=== PATIENT | female | born 1970 | race Caucasian/White ===

== ENCOUNTER 2017-02-18 08:00 | Emergency (ER) | payer MEDICARE ==
--- NOTE | 2017-02-18 09:03 | ED CLINICAL REPORT ---
Clinical Report - Physicians/Mid Levels [facility] [address] [place] [address] 02/18/2017 8:03 Patient: JESSICA CARRASCO Time Seen: 0811. Arrived- By private vehicle. Historian- patient. HISTORY OF PRESENT ILLNESS Chief Complaint: SWELLING OF JAW / FACE. This started past few days and is still present. It was abrupt in onset and has been waxing/waning but is not gone now. Pain described as mild. No sore throat, nasal congestion or toothache. (states there is a "gland" that swells up while eating. then it gets better after an hour or so. no redness noted over the area.). Similar symptoms previously: None. Recent medical care: Not recently seen/assessed. REVIEW OF SYSTEMS No fever, difficulty breathing, chest pain, nausea or skin rash. Denies current . All systems otherwise negative, except as recorded above. PAST HISTORY See nurses notes. Medications: Methadone HCl Oral. Allergies: No Known Drug Allergy. SOCIAL HISTORY Never smoker. 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 No alcohol use. No recent travel. Is a local resident. ADDITIONAL NOTES The nursing notes have been reviewed. PHYSICAL EXAM Vital Signs: 02/18/2017 08:11 BP: 161/94. HR: 79. RR: 15. O2 saturation: 97%. Temp: 98.3 F. Oxygen saturation normal. Appearance: Alert. No acute distress. (non-toxic. pleasant. cooperative.). Head: Normal external inspection. Eyes: Pupils equal, round and reactive to light. Conjunctivae and eyelids normal. ENT: Ears normal. Nose normal. Pharynx normal. Lips normal. Gums normal. No trismus present. Uvula midline. (left submandibular swelling that is roughly 3 x 4 cm. Regular, non-tender mass. no overlying skin changes. no purulent discharge from salivary ducts.). Neck: Normal inspection. Trachea midline. No adenopathy. Thyroid normal. Neck supple. No meningeal signs. (no stridor). CVS: Normal heart rate and rhythm. Heart sounds normal. Pulses normal. Respiratory: No respiratory distress. Breath sounds normal. Chest nontender. Abdomen: Soft and nontender. No organomegaly. Skin: Normal skin color. No rash. Normal skin turgor. Neuro: Oriented X 3. No motor deficit. LABS, X-RAYS, AND EKG Note - Special Studies: Ultrasound neck: + sialoadenitis left submandibular gland; no abscess. Pulse Oximetry: 02/18/2017 08:11 O2 saturation: 97%. (FIO2 - room air). Interpretation: normal. PROGRESS AND PROCEDURES Course of Care: The patient is a pleasant 46-year-old female presenting for left-sided facial swelling. Patient with likely salioadenitis from saliolithiasis. Patient otherwise is in no acute distress and is nontoxic. No concern for airway compromise. No signs of Panchito's angina. Patient be evaluated with an ultrasound for differentiation of the salivary gland from possible reactive lymphadenitis. Ultrasound is pending. Patient will be transferred over to the oncoming doctor at the change of shift. 09:00. Care transferred from Dr Aguirre to myself secondary to change of shift patient updated on ETA of US. States she has been waiting 30 minutes. Expressed displeased behavior when learning she will need to wait 45 more minutes for US. Offered amenities to keep her comfortable while here in the ED. 09:55 02/18/17. US completed and confirms sialoadenitis. Patient/family counseled. Old ED records reviewed. Patient has had multiple ED visits. Disposition: Discharged. Condition: stable and improved. CLINICAL IMPRESSION Acute sialoadenitis Acute left cervical lymphadenitis (submandibular). INSTRUCTIONS Drink plenty of fluids. Warnings: Further evaluation is necessary. It is very important to follow up with a physician. GENERAL WARNINGS: Return or contact your physician immediately if your condition worsens or changes unexpectedly, if not improving as expected, or if other problems arise. Your Current Medications: CONTINUE TAKING THE FOLLOWING MEDICATIONS: Methadone HCl Oral. Prescription Medications: Augmentin 875 mg: take 1 tablet orally every 12 hours for 7 days. Dispense fourteen (14). No refills. Substitution is permissible. OTC Medications: Acetaminophen (available over the counter): take according to label instructions. Motrin (available over the counter): take according to label instructions. Follow-up: Follow up with your doctor tomorrow. Follow up with an ear, nose and throat physician (an booking clerk)- as recommended by your primary care physician. Follow-up with: Compa Sauer MD, ENT, , [address], , [place], [id number] Follow up in about two days. (Electronically signed by Hu You DO 02/18/2017 12:50)
--- NOTE | 2017-02-18 09:03 | ED CLINICAL REPORT ---
Clinical Report - Physicians/Mid Levels [facility] [address] [place] [address] 02/18/2017 8:03 Patient: JESSICA CARRASCO Time Seen: 0811. Arrived- By private vehicle. Historian- patient. HISTORY OF PRESENT ILLNESS Chief Complaint: SWELLING OF JAW / FACE. This started past few days and is still present. It was abrupt in onset and has been waxing/waning but is not gone now. Pain described as mild. No sore throat, nasal congestion or toothache. (states there is a "gland" that swells up while eating. then it gets better after an hour or so. no redness noted over the area.). Similar symptoms previously: None. Recent medical care: Not recently seen/assessed. REVIEW OF SYSTEMS No fever, difficulty breathing, chest pain, nausea or skin rash. Denies current . All systems otherwise negative, except as recorded above. PAST HISTORY See nurses notes. Medications: Methadone HCl Oral. Allergies: No Known Drug Allergy. SOCIAL HISTORY Never smoker. 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 No alcohol use. No recent travel. Is a local resident. ADDITIONAL NOTES The nursing notes have been reviewed. PHYSICAL EXAM Vital Signs: 02/18/2017 08:11 BP: 161/94. HR: 79. RR: 15. O2 saturation: 97%. Temp: 98.3 F. Oxygen saturation normal. Appearance: Alert. No acute distress. (non-toxic. pleasant. cooperative.). Head: Normal external inspection. Eyes: Pupils equal, round and reactive to light. Conjunctivae and eyelids normal. ENT: Ears normal. Nose normal. Pharynx normal. Lips normal. Gums normal. No trismus present. Uvula midline. (left submandibular swelling that is roughly 3 x 4 cm. Regular, non-tender mass. no overlying skin changes. no purulent discharge from salivary ducts.). Neck: Normal inspection. Trachea midline. No adenopathy. Thyroid normal. Neck supple. No meningeal signs. (no stridor). CVS: Normal heart rate and rhythm. Heart sounds normal. Pulses normal. Respiratory: No respiratory distress. Breath sounds normal. Chest nontender. Abdomen: Soft and nontender. No organomegaly. Skin: Normal skin color. No rash. Normal skin turgor. Neuro: Oriented X 3. No motor deficit. LABS, X-RAYS, AND EKG Note - Special Studies: Ultrasound neck: + sialoadenitis left submandibular gland; no abscess. Pulse Oximetry: 02/18/2017 08:11 O2 saturation: 97%. (FIO2 - room air). Interpretation: normal. PROGRESS AND PROCEDURES Course of Care: The patient is a pleasant 46-year-old female presenting for left-sided facial swelling. Patient with likely salioadenitis from saliolithiasis. Patient otherwise is in no acute distress and is nontoxic. No concern for airway compromise. No signs of Panchito's angina. Patient be evaluated with an ultrasound for differentiation of the salivary gland from possible reactive lymphadenitis. Ultrasound is pending. Patient will be transferred over to the oncoming doctor at the change of shift. 09:00. Care transferred from Dr Aguirre to myself secondary to change of shift patient updated on ETA of US. States she has been waiting 30 minutes. Expressed displeased behavior when learning she will need to wait 45 more minutes for US. Offered amenities to keep her comfortable while here in the ED. 09:55 02/18/17. US completed and confirms sialoadenitis. Patient/family counseled. Old ED records reviewed. Patient has had multiple ED visits. Disposition: Discharged. Condition: stable and improved. CLINICAL IMPRESSION Acute sialoadenitis Acute left cervical lymphadenitis (submandibular). INSTRUCTIONS Drink plenty of fluids. Warnings: Further evaluation is necessary. It is very important to follow up with a physician. GENERAL WARNINGS: Return or contact your physician immediately if your condition worsens or changes unexpectedly, if not improving as expected, or if other problems arise. Your Current Medications: CONTINUE TAKING THE FOLLOWING MEDICATIONS: Methadone HCl Oral. Prescription Medications: Augmentin 875 mg: take 1 tablet orally every 12 hours for 7 days. Dispense fourteen (14). No refills. Substitution is permissible. OTC Medications: Acetaminophen (available over the counter): take according to label instructions. Motrin (available over the counter): take according to label instructions. Follow-up: Follow up with your doctor tomorrow. Follow up with an ear, nose and throat physician (an contemporary or modern dancer)- as recommended by your primary care physician. Follow-up with: Compa Sauer MD, ENT, , [address], , [place], [id number] Follow up in about two days. (Electronically signed by Hu You DO 02/18/2017 12:50)
--- NOTE | 2017-02-18 09:04 | ED NURSING NOTES ---
Clinical Report - Nurses [facility] [address] [place] [address] 02/18/2017 8:03 Patient: JESSICA CARRASCO TRIAGE Triage time 08:10. Acuity: LEVEL 4. Chief Complaint: (swollen glands). 08:16 02/18/17. Alert. No acute distress. SEPSIS SCREEN: Sepsis Screen. Negative (no infection suspected/documented). TETO COMA SCORE: Gibbs Coma Scale: 15- eyes open spontaneously (4); best verbal response- oriented x 4 (5); best motor response- obeys commands (6). --08:16 Abbey Lee R.N. 08:11 02/18/17. BP: 161/94. HR: 79. RR: 15. O2 saturation: 97%. Temp: 98.3 F. Pain level now: 0/10. --08:16 Abbey Lee R.N. <<STRICKEN ENTRY-- 08:11 02/18/17. BP: 161/94. HR: 79. RR: 15. O2 saturation: 97%. Temp: 98.3 F. --08:16 Abbey Lee R.N. --END STRIKE>> Correction. --11:01 Abbey Lee R.N. Weight: 65.7 kg stated. Height/Length: 71 inches Per Patient. BMI: 20.2. --08:15 Abbey Lee R.N. Medications Methadone HCl Oral. --08:15 Abbey Lee R.N. Allergies No Known Drug Allergy. --08:12 Abbey Lee R.N. History ( Patient reports her glands swell "to the size of a baseball" when she eats. She states "I get that sour taste when I eat."). Treatment LEARNING SUPPORT SERVICES DIRECTOR: None. PAST MEDICAL HX: ( Hx of Hepatitis C). SOCIAL HX: Heavy tobacco smoker- less than 1 pack per day. History of drug use. (history of opioid use). No alcohol use. ABUSE ASSESSMENT: No report of abuse. FALL RISK ASSESSMENT: Fall risk assessment completed. No fall risk identified. NUTRITIONAL RISK ASSESSMENT: The nutritional risk assessment revealed no deficiencies. FUNCTIONAL ASSESSMENT: Functional assessment: no impairments noted. LEARNING NEEDS ASSESSMENT: The learning needs assessment revealed no barriers. SKIN INTEGRITY ASSESSMENT: Skin integrity risk assessment completed. No skin integrity risk identified. --08:16 Abbey Lee R.N. PROBLEMS: Substance Abuse. Abdominal Pain. UTI - Urinary Tract Infection. Diarrhea. Vomiting. Gastroesophageal Reflux. LNMP - Last Normal Menstrual Period. Sleep Apnea. Reflux. --08:12 Abbey Lee R.N. ADDITIONAL SURGERIES: Adenoidectomy. . Tonsillectomy. --08:13 Abbey Lee R.N. Interventions ID band on patient. To treatment room. --08:16 Abbey Lee R.N. PHYSICAL ASSESSMENT 08:17 02/18/17. GENERAL / NEURO / PSYCH: Alert. Oriented X 4. Appears in no acute distress. HEENT: Pupils equal, round and reactive to light. ( Patient has mild swelling on the L side of her neck.). Mucous membranes are pink. RESPIRATORY: Respirations not labored. Chest nontender. CVS: Capillary refill less than 2 seconds. Pulses within normal limits. SKIN: Skin intact. Skin is warm and dry. Normal skin turgor. --08:17 Abbey Lee R.N. NURSING PROGRESS NOTES Patient gowned. Two patient identifiers checked. Call light placed in reach. Side rails up x 1. Bed placed in lowest position. Brakes of bed on. --08:18 Abbey Lee R.N. Patient informed about reason for wait and about plan of care. --09:42 Abbey Lee R.N. DISPOSITION / DISCHARGE 10:02. No learning barriers present. Discharge instructions provided and reviewed with the patient and family. Reviewed warnings. Reviewed medication(s). Treatments reviewed. Patient verbalized understanding. Written instructions provided in Maltese. The patient was discharged by the physician. She was discharged home and accompanied by family. She left the Emergency Department ambulatory and via private vehicle. Family member driving. --11:01 Abbey Lee R.N. 10:00 02/18/17. BP: 138/88. HR: 61. RR: 16. O2 saturation: 95%. Temp: deferred. Pain level now: 010. --11:01 Abbey Lee R.N. Locked/Released at 02/18/2017 11:03 by Abbey Lee R.N.
--- NOTE | 2017-02-18 09:04 | ED ORDER SUMMARY ---
..... Patient: JESSICA CARRASCO OrderSheet [facility] VisitID: [id number] [address] [place] [address] 46y, F Registration Date/Time: 02/18/2017 ORDER SHEET Weight: 65.7 kg (stated) Allergies: No Known Drug Allergy GENERAL ORDERS: US Soft Tissue Thyroid/Neck/Head Urgent (08:16 02/18/2017 Mitch Pérez) (Ack 8:29 Vikki) (9:51 Shanae Hanson) MEDICATION ORDERS: Augmentin PO 875 mg (NOW) (09:55 02/18/2017 Yanira BENTON) (Ack 9:58 Shanae Hanson) (Cancelled: Patient Refusal9:59 Yanira BENTON) IV FLUIDS: ORDER SHEET NOTES: [Electronically signed by Abbey Lee R.N. (11:03 02/18/2017)] [Electronically signed by Hu You DO (12:50 02/18/2017)] [Electronically locked/signed by Abbey Lee R.N. (11:03 02/18/2017)]
--- NOTE | 2017-02-18 09:04 | ED NURSING NOTES ---
Clinical Report - Nurses [facility] [address] [place] [address] 02/18/2017 8:03 Patient: JESSICA CARRASCO TRIAGE Triage time 08:10. Acuity: LEVEL 4. Chief Complaint: (swollen glands). 08:16 02/18/17. Alert. No acute distress. SEPSIS SCREEN: Sepsis Screen. Negative (no infection suspected/documented). TETO COMA SCORE: Voss Coma Scale: 15- eyes open spontaneously (4); best verbal response- oriented x 4 (5); best motor response- obeys commands (6). --08:16 Abbey Lee R.N. 08:11 02/18/17. BP: 161/94. HR: 79. RR: 15. O2 saturation: 97%. Temp: 98.3 F. Pain level now: 0/10. --08:16 Abbey Lee R.N. <<STRICKEN ENTRY-- 08:11 02/18/17. BP: 161/94. HR: 79. RR: 15. O2 saturation: 97%. Temp: 98.3 F. --08:16 Abbey eLe R.N. --END STRIKE>> Correction. --11:01 Abbey Lee R.N. Weight: 65.7 kg stated. Height/Length: 71 inches Per Patient. BMI: 20.2. --08:15 Abbey Lee R.N. Medications Methadone HCl Oral. --08:15 Abbey Lee R.N. Allergies No Known Drug Allergy. --08:12 Abbey Lee R.N. History ( Patient reports her glands swell "to the size of a baseball" when she eats. She states "I get that sour taste when I eat."). Treatment STEEL POST INSTALLER: None. PAST MEDICAL HX: ( Hx of Hepatitis C). SOCIAL HX: Heavy tobacco smoker- less than 1 pack per day. History of drug use. (history of opioid use). No alcohol use. ABUSE ASSESSMENT: No report of abuse. FALL RISK ASSESSMENT: Fall risk assessment completed. No fall risk identified. NUTRITIONAL RISK ASSESSMENT: The nutritional risk assessment revealed no deficiencies. FUNCTIONAL ASSESSMENT: Functional assessment: no impairments noted. LEARNING NEEDS ASSESSMENT: The learning needs assessment revealed no barriers. SKIN INTEGRITY ASSESSMENT: Skin integrity risk assessment completed. No skin integrity risk identified. --08:16 Abbey Lee R.N. PROBLEMS: Substance Abuse. Abdominal Pain. UTI - Urinary Tract Infection. Diarrhea. Vomiting. Gastroesophageal Reflux. LNMP - Last Normal Menstrual Period. Sleep Apnea. Reflux. --08:12 Abbey Lee R.N. ADDITIONAL SURGERIES: Adenoidectomy. . Tonsillectomy. --08:13 Abbey Lee R.N. Interventions ID band on patient. To treatment room. --08:16 Abbey Lee R.N. PHYSICAL ASSESSMENT 08:17 02/18/17. GENERAL / NEURO / PSYCH: Alert. Oriented X 4. Appears in no acute distress. HEENT: Pupils equal, round and reactive to light. ( Patient has mild swelling on the L side of her neck.). Mucous membranes are pink. RESPIRATORY: Respirations not labored. Chest nontender. CVS: Capillary refill less than 2 seconds. Pulses within normal limits. SKIN: Skin intact. Skin is warm and dry. Normal skin turgor. --08:17 Abbey Lee R.N. NURSING PROGRESS NOTES Patient gowned. Two patient identifiers checked. Call light placed in reach. Side rails up x 1. Bed placed in lowest position. Brakes of bed on. --08:18 Abbey Lee R.N. Patient informed about reason for wait and about plan of care. --09:42 Abbey Lee R.N. DISPOSITION / DISCHARGE 10:02. No learning barriers present. Discharge instructions provided and reviewed with the patient and family. Reviewed warnings. Reviewed medication(s). Treatments reviewed. Patient verbalized understanding. Written instructions provided in Indonesian. The patient was discharged by the physician. She was discharged home and accompanied by family. She left the Emergency Department ambulatory and via private vehicle. Family member driving. --11:01 Abbey Lee R.N. 10:00 02/18/17. BP: 138/88. HR: 61. RR: 16. O2 saturation: 95%. Temp: deferred. Pain level now: 010. --11:01 Abbey Lee R.N. Locked/Released at 02/18/2017 11:03 by Abbey Lee R.N.
--- NOTE | 2017-02-18 09:04 | ED ORDER SUMMARY ---
..... Patient: JESSICA CARRASCO OrderSheet [facility] VisitID: [id number] [address] [place] [address] 46y, F Registration Date/Time: 02/18/2017 ORDER SHEET Weight: 65.7 kg (stated) Allergies: No Known Drug Allergy GENERAL ORDERS: US Soft Tissue Thyroid/Neck/Head Urgent (08:16 02/18/2017 Mitch Pérez) (Ack 8:29 Vikki) (9:51 Shanae Hanson) MEDICATION ORDERS: Augmentin PO 875 mg (NOW) (09:55 02/18/2017 Yanira BENTON) (Ack 9:58 Shanae Hanson) (Cancelled: Patient Refusal9:59 Yanira BENTON) IV FLUIDS: ORDER SHEET NOTES: [Electronically signed by Abbey Lee R.N. (11:03 02/18/2017)] [Electronically signed by Hu You DO (12:50 02/18/2017)] [Electronically locked/signed by Abbey Lee R.N. (11:03 02/18/2017)]
--- NOTE | 2017-02-18 11:43 | DIAGNOSTIC IMAGING REPORT ---
PROCEDURE: US SOFT TISSUE THYR/NECK/HEAD INDICATION: LEFT SUBMANDIBULAR SWELLING TECHNIQUE: Le scale and color Doppler sonographic images of the thyroid gland were obtained. COMPARISON: None. FINDINGS: Enlarged left submandibular gland (4 x 3 x 1.3 cm) with a 6 mm calcification. No evidence of hyperemia. IMPRESSION: 1. Enlarged left submandibular gland with a 6 mm calcification/calculus.
--- NOTE | 2017-02-18 12:50 | ED MAR SUMMARY ---
..... Medication Administration Record [facility] [address] [place], [place] [id number] Patient: JESSICA CARRASCO Visit ID: [id number] 46y, F Weight: 65.7 kg Height/Length: 71 in BMI: 20.2 ALLERGIES: No Known Drug Allergy
--- NOTE | 2017-02-18 12:50 | ED MAR SUMMARY ---
..... Medication Administration Record [facility] [address] [place], [place] [id number] Patient: JESSICA CARRASCO Visit ID: [id number] 46y, F Weight: 65.7 kg Height/Length: 71 in BMI: 20.2 ALLERGIES: No Known Drug Allergy
--- NOTE | 2017-02-18 12:50 | ED MED RECONCILIATION SUMMARY ---
Patient: JESSICA CARRASCO Medication Reconciliation Report [facility] VisitID: [id number] [address] [place] [address] 46y, F Registration Date/Time: 02/18/2017 Weight: 65.7 kg Height/Length: 71 in. BMI: 20.2 ALLERGIES: No Known Drug Allergy The patient's Home Medications are listed below: CONTINUE TAKING THE FOLLOWING MEDICATIONS: Methadone HCl Oral The source(s) of the original Home Medication information: Not obtained. The following Medications were given to the patient in the Emergency Department: None. The following Medications were prescribed to the patient: Acetaminophen (available over the counter): take according to label instructions. -- Hu You DO Motrin (available over the counter): take according to label instructions. -- Hu You DO Augmentin 875 mg: take 1 tablet orally every 12 hours for 7 days. Dispense fourteen (14). No refills. Substitution is permissible. -- Hu You DO
--- NOTE | 2017-02-18 12:50 | ED MED RECONCILIATION SUMMARY ---
Patient: JESSICA CARRASCO Medication Reconciliation Report [facility] VisitID: [id number] [address] [place] [address] 46y, F Registration Date/Time: 02/18/2017 Weight: 65.7 kg Height/Length: 71 in. BMI: 20.2 ALLERGIES: No Known Drug Allergy The patient's Home Medications are listed below: CONTINUE TAKING THE FOLLOWING MEDICATIONS: Methadone HCl Oral The source(s) of the original Home Medication information: Not obtained. The following Medications were given to the patient in the Emergency Department: None. The following Medications were prescribed to the patient: Acetaminophen (available over the counter): take according to label instructions. -- Hu You DO Motrin (available over the counter): take according to label instructions. -- Hu You DO Augmentin 875 mg: take 1 tablet orally every 12 hours for 7 days. Dispense fourteen (14). No refills. Substitution is permissible. -- Hu You DO
--- NOTE | 2017-02-18 12:50 | ED DISCHARGE INSTRUCTIONS ---
Patient: JESSICA CARRASCO General Instructions Formerly [facility] VisitID: [id number] [address] [place] [address] 46y, F Registration Date/Time: 02/18/2017 Acute sialoadenitis Acute left cervical lymphadenitis (submandibular). INSTRUCTIONS Drink plenty of fluids. Warnings: Further evaluation is necessary. It is very important to follow up with a physician. GENERAL WARNINGS: Return or contact your physician immediately if your condition worsens or changes unexpectedly, if not improving as expected, or if other problems arise. Your Current Medications: CONTINUE TAKING THE FOLLOWING MEDICATIONS: Methadone HCl Oral. Prescription Medications: Augmentin 875 mg: take 1 tablet orally every 12 hours for 7 days. Dispense fourteen (14). No refills. Substitution is permissible. OTC Medications: Acetaminophen (available over the counter): take according to label instructions. Motrin (available over the counter): take according to label instructions. Follow-up: Follow up with your doctor tomorrow. Follow up with an ear, nose and throat physician (an salon professional)- as recommended by your primary care physician. Follow-up with: Compa Sauer MD, ENT, , [address], , [place], [id number] Follow up in about two days. ADDITIONAL INFORMATION Salivary Gland Infection Salivary glands make saliva in response to food in your mouth. Saliva is mostly water, but also has minerals and proteins that help break down food and keep the mouth and teeth healthy. There are three pairs of salivary glands: Parotid glands (in front of the ear) Submandibular glands (below the jaw) Sublingual glands (below the tongue) Each gland has a duct (channel) that allows saliva to flow from the gland into the mouth. The salivary gland can become infected as a result of the salivary duct being blocked. This blockage may be due to a stone, narrowing of the duct, or poor salivary flow due to dehydration. Chronic illness or certain medications can also increase the risk of infection. A blocked salivary gland is at risk of infection. This causes severe pain in the gland with redness in the skin over the gland. The gland is tender to the touch and there may be fever. Symptoms are worse during eating since food stimulates the flow of saliva. Even the smell or thought of food can cause symptoms to appear. Diagnosis of a salivary gland blockage with infection requires an X-ray, CT-scan, ultrasound or injection of dye into the salivary duct. If a stone is discovered, it may be removed by massage of the duct, or a procedure to remove the stone manually. Antibiotics are used to treat the infection. Sometimes it is necessary to drain the infection with a small surgical procedure. Home Care: Drink 6-8 glasses of fluid per day (water, juices, tea, soup, etc.) to keep well-hydrated. If you smoke, quit smoking. Maintain good dental hygiene: [place] your teeth, floss, and use mouthwash. If it is determined that no stone is present, but you have gland swelling during meals, there may be sludge blocking the duct, or the duct may be narrowed. Gently massaging the gland and sucking on lemon drops after a meal may help reduce the symptoms. Take antibiotics as directed until you have finished them all, even if you are feeling better after only a few days. Follow Up with your doctor or as advised by our staff. Get Prompt Medical Attention if any of the following occur: Increasing pain or swelling in the gland Fever over 100.5F (38.0C) that persists after two days of antibiotics Increasing redness over the gland Lymph Node Infection [Local, Antibiotic Treatment] You have a bacterial infection of the lymph node. The lymph nodes are part of the immune system and become swollen and tender when there is a nearby infection or inflammation. The lymph nodes are found under the jaw and along the side of the neck, in the armpits and in the groin. An infection or inflammation in the tissues nearby causes the lymph nodes to swell and become tender. When a bacterial infection occurs in the lymph node, it becomes very painful and the nearby skin gets red and warm. There may also be a fever. Antibiotics and hot compresses are used to treat this infection. The pain and redness will decrease over the next 7-10 days. Swelling may take several months to go away. Sometimes an ABSCESS (with pus) forms inside the lymph node. If this happens, antibiotics may not be enough to cure the infection. Minor Surgery may be needed to drain the pus. Home Care: Take all of the antibiotic medicine exactly as prescribed until it is gone. Be careful not to miss any doses, especially during the first few days. Make a hot compress by running hot water over a face cloth. Apply it to the sore area until it cools off. Repeat this for 20 minutes. Apply the hot compress three times a day for the first three days or until the pain and redness begin to improve. The heat will increase the blood flow to the area and speed the healing process. You may use acetaminophen (Tylenol) or ibuprofen (Motrin, Advil) to control pain and fever, unless another medicine was prescribed for this. Do not use ibuprofen in children under six months of age. [NOTE: If you have chronic liver or kidney disease or ever had a stomach ulcer or GI bleeding, talk with your doctor before using these medicines.] (Aspirin should never be used in anyone under 18 years of age who is ill with a fever. It may cause severe liver damage.) Follow Up with your doctor or this facility after completion of the antibiotics or as directed. Get Prompt Medical Attention if any of the following occur: Increasing redness, swelling or pain in the lymph node Pus or fluid drainage from the lymph node Difficulty breathing or swallowing Fever remains over 100.5F (38.0C) oral or 101.5F (38.3C) rectal for more than 2 days of treatment Amoxicillin Trihydrate, Clavulanate Potassium Oral tablet What is this medicine? AMOXICILLIN; CLAVULANIC ACID (a mox i KENYETTA in; JOVANNA milan id) is a penicillin antibiotic. It is used to treat certain kinds of bacterial infections. It will not work for colds, flu, or other viral infections. How should I use this medicine? Take this medicine by mouth with a full glass of water. Follow the directions on the prescription label. Take at the start of a meal. Do not crush or chew. If the tablet has a score line, you may cut it in half at the score line for easier swallowing. Take your medicine at regular intervals. Do not take your medicine more often than directed. Take all of your medicine as directed even if you think you are better. Do not skip doses or stop your medicine early. Talk to your library aide regarding the use of this medicine in children. Special care may be needed. What side effects may I notice from receiving this medicine? Side effects that you should report to your doctor or health neonatal intensive care unit nurse as soon as possible: allergic reactions like skin rash, itching or hives, swelling of the face, lips, or tongue breathing problems dark urine fever or chills, sore throat redness, blistering, peeling or loosening of the skin, including inside the mouth seizures trouble passing urine or change in the amount of urine unusual bleeding, bruising unusually weak or tired white patches or sores in the mouth or throat Side effects that usually do not require medical attention (report to your doctor or health neonatal intensive care unit nurse if they continue or are bothersome): diarrhea dizziness headache nausea, vomiting stomach upset vaginal or anal irritation What may interact with this medicine? allopurinol anticoagulants control pills methotrexate probenecid What if I miss a dose? If you miss a dose, take it as soon as you can. If it is almost time for your next dose, take only that dose. Do not take double or extra doses. Where should I keep my medicine? Keep out of the reach of children. Store at room temperature below 25 degrees C (77 degrees F). Keep container tightly closed. Throw away any unused medicine after the expiration date. What should I tell my health care provider before I take this medicine? They need to know if you have any of these conditions: bowel disease, like colitis kidney disease liver disease mononucleosis an unusual or allergic reaction to amoxicillin, penicillin, cephalosporin, other antibiotics, clavulanic acid, other medicines, foods, dyes, or preservatives or trying to get breast-feeding What should I watch for while using this medicine? Tell your doctor or health neonatal intensive care unit nurse if your symptoms do not improve. Do not treat diarrhea with over the counter products. Contact your doctor if you have diarrhea that lasts more than 2 days or if it is severe and watery. If you have diabetes, you may get a false-positive result for sugar in your urine. Check with your doctor or health neonatal intensive care unit nurse. control pills may not work properly while you are taking this medicine. Talk to your doctor about using an extra method of control. Acetaminophen Oral tablet What is this medicine? ACETAMINOPHEN (a set a AKILA lala fen) is a pain reliever. It is used to treat mild pain and fever. How should I use this medicine? Take this medicine by mouth with a glass of water. Follow the directions on the package or prescription label. Take your medicine at regular intervals. Do not take your medicine more often than directed. Talk to your library aide regarding the use of this medicine in children. While this drug may be prescribed for children as young as 6 years of age for selected conditions, precautions do apply. What side effects may I notice from receiving this medicine? Side effects that you should report to your doctor or health neonatal intensive care unit nurse as soon as possible: allergic reactions like skin rash, itching or hives, swelling of the face, lips, or tongue breathing problems fever or sore throat redness, blistering, peeling or loosening of the skin, including inside the mouth trouble passing urine or change in the amount of urine unusual bleeding or bruising unusually weak or tired yellowing of the eyes or skin Side effects that usually do not require medical attention (report to your doctor or health neonatal intensive care unit nurse if they continue or are bothersome): headache nausea, stomach upset What may interact with this medicine? alcohol imatinib isoniazid other medicines with acetaminophen What if I miss a dose? If you miss a dose, take it as soon as you can. If it is almost time for your next dose, take only that dose. Do not take double or extra doses. Where should I keep my medicine? Keep out of reach of children. Store at room temperature between 20 and 25 degrees C (68 and 77 degrees F). Protect from moisture and heat. Throw away any unused medicine after the expiration date. What should I tell my health care provider before I take this medicine? They need to know if you have any of these conditions: if you frequently drink alcohol containing drinks liver disease an unusual or allergic reaction to acetaminophen, other medicines, foods, dyes or preservatives or trying to get breast-feeding What should I watch for while using this medicine? Tell your doctor or health neonatal intensive care unit nurse if the pain lasts more than 10 days (5 days for children), if it gets worse, or if there is a new or different kind of pain. Also, check with your doctor if a fever lasts for more than 3 days. Do not take other medicines that contain acetaminophen with this medicine. Always read labels carefully. If you have questions, ask your doctor or pharmacist. If you take too much acetaminophen get medical help right away. Too much acetaminophen can be very dangerous and cause liver damage. Even if you do not have symptoms, it is important to get help right away. Ibuprofen Oral tablet What is this medicine? IBUPROFEN (eye BYOO proe fen) is a non-steroidal anti-inflammatory drug (NSAID). It is used for dental pain, fever, headaches or migraines, osteoarthritis, rheumatoid arthritis, or painful monthly periods. It can also relieve minor aches and pains caused by a cold, flu, or sore throat. How should I use this medicine? Take this medicine by mouth with a glass of water. Follow the directions on the prescription label. Take this medicine with food if your stomach gets upset. Try to not lie down for at least 10 minutes after you take the medicine. Take your medicine at regular intervals. Do not take your medicine more often than directed. A special MedGuide will be given to you by the pharmacist with each prescription and refill. Be sure to read this information carefully each time. Talk to your library aide regarding the use of this medicine in children. Special care may be needed. What side effects may I notice from receiving this medicine? Side effects that you should report to your doctor or health neonatal intensive care unit nurse as soon as possible: allergic reactions like skin rash, itching or hives, swelling of the face, lips, or tongue black or bloody stools, blood in the urine or in vomit breathing problems changes in vision chest pain general ill feeling or flu-like symptoms nausea or vomiting redness, blistering, peeling or loosening of the skin, including inside the mouth slurred speech or weakness on one side of the body stomach pain unexplained weight gain or swelling unusually weak or tired yellowing of eyes or skin Side effects that usually do not require medical attention (report to your doctor or health neonatal intensive care unit nurse if they continue or are bothersome): constipation or diarrhea dizziness gas or heartburn stomach upset What may interact with this medicine? Do not take this medicine with any of the following medications: cidofovir ketorolac methotrexate pemetrexed This medicine may also interact with the following medications: alcohol aspirin diuretics lithium other drugs for inflammation like prednisone warfarin What if I miss a dose? If you miss a dose, take it as soon as you can. If it is almost time for your next dose, take only that dose. Do not take double or extra doses. Where should I keep my medicine? Keep out of the reach of children. Store at room temperature between 15 and 30 degrees C (59 and 86 degrees F). Keep container tightly closed. Throw away any unused medicine after the expiration date. What should I tell my health care provider before I take this medicine? They need to know if you have any of these conditions: asthma cigarette smoker drink more than 3 alcohol containing drinks a day heart disease or circulation problems such as heart failure or leg edema (fluid retention) high blood pressure kidney disease liver disease stomach bleeding or ulcers an unusual or allergic reaction to ibuprofen, aspirin, other NSAIDS, other medicines, foods, dyes, or preservatives or trying to get breast-feeding What should I watch for while using this medicine? Tell your doctor or healthcare professional if your symptoms do not start to get better or if they get worse. This medicine does not prevent heart attack or stroke. In fact, this medicine may increase the chance of a heart attack or stroke. The chance may increase with longer use of this medicine and in people who have heart disease. If you take aspirin to prevent heart attack or stroke, talk with your doctor or health neonatal intensive care unit nurse. Do not take other medicines that contain aspirin, ibuprofen, or naproxen with this medicine. Side effects such as stomach upset, nausea, or ulcers may be more likely to occur. Many medicines available without a prescription should not be taken with this medicine. This medicine can cause ulcers and bleeding in the stomach and intestines at any time during treatment. Ulcers and bleeding can happen without warning symptoms and can cause . To reduce your risk, do not smoke cigarettes or drink alcohol while you are taking this medicine. You may get drowsy or dizzy. Do not drive, use machinery, or do anything that needs mental alertness until you know how this medicine affects you. Do not stand or sit up quickly, especially if you are an older patient. This reduces the risk of dizzy or fainting spells. This medicine can cause you to bleed more easily. Try to avoid damage to your teeth and gums when you brush or floss your teeth. You have been given the following additional information: Salivary Gland Infection Cervical Adenitis, Antiobiotic Treatment Amoxicillin Trihydrate, Clavulanate Potassium Oral tablet Acetaminophen Oral tablet Ibuprofen Oral tablet (Electronically signed by Hu You DO 02/18/2017 12:50)
== END 2017-02-18 10:02 | disposition home or self-care (01) ==
LOC: ED SRH 08:00
DX: K11.21 Acute sialoadenitis (principal); L04.0 Acute lymphadenitis of face, head and neck; F11.20 Opioid dependence, uncomplicated